=== PATIENT | male | born 1960 | race Caucasian/White ===

== ENCOUNTER 2018-08-09 12:14 | Emergency (ER) | payer BC ==
--- NOTE | 2018-08-09 13:04 | Emergency Department Record ---
History of Present Illness - General Chief complaint: Male Urogenital Problem Stated complaint: TROUBLE URINATING Source: Patient Mode of Arrival: Ambulatory Limitations: No limitations - History of Present Illness Initial comments: 57 yo male presents with difficulty urinating with frequent urination. The patient reports he had a Urolift procedure on Friday with Dr Bang. On he felt he was doing well. Starting Friday through today he has developed difficulty with urination and fever with a Tmax of 102 last night. Temperature this morning was 100.0. He has vague pressure over the bladder area. He reports some constipation. No nausea, vomiting or diarrhea. He is on T#3 and Cipro BID. MD Complaint: Other (Difficulty urinating) -: Days(s) (2) Improves with: None Worsens with: Urination Recent surgery Reports: Fever, Urinary retention - Related Data Home Medications Medication Instructions Recorded Confirmed Last Taken Acetaminop W/ Codeine 300/30Mg 1 tab PO ASDIR 08/09/18 08/09/18 08/09/18 [Tylenol with Codeine #3] Ciprofloxacin HCl [Cipro] 500 mg PO ASDIR 08/09/18 08/09/18 08/09/18 Oxycodone HCl/Acetaminophen 08/09/18 Unknown [Percocet 10mg/325mg] Previous Rx's Medication Instructions Recorded Acetaminop W/ Codeine 300/30Mg 1 tab PO Q6H #10 tab 08/09/18 [Tylenol #3] Docusate Sodium [Colace] 100 mg PO BID #14 cap 08/09/18 Sulfamethoxazole/Trimethoprim 1 each PO BID #14 tablet 08/09/18 [Bactrim Ds Tablet] Allergies Allergy/AdvReac Type Severity Reaction Status Date / Time No Known Drug Allergies Allergy Verified 08/09/18 12:53 Review of Systems Constitutional: Denies: Chills, Fever, Malaise, Weakness Eyes: Denies: Eye discharge ENT: Denies: Congestion, Throat pain Respiratory: Denies: Cough Cardiovascular: Denies: Chest pain, Syncope Endocrine: Denies: Fatigue Gastrointestinal: Reports: Abdominal pain. Denies: Diarrhea, Nausea, Vomiting Genitourinary: Reports: As per HPI, Frequency, Retention. Denies: Incontinence Musculoskeletal: Denies: Arthralgia, Back pain, Myalgia, Neck pain Skin: Denies: Bruising, Change in color, Rash Neurological: Denies: Confusion, Headache Psychiatric: Denies: Anxiety Hematological/Lymphatic: Denies: Easy bleeding, Easy bruising, Swollen glands Physical Exam - General General Appearance: Alert, Oriented x3, Cooperative, No acute distress Limitations: No limitations - Head Head exam: Atraumatic, Normal inspection - Eye Eye exam: Normal appearance. negative: Conjunctival injection - ENT ENT exam: Normal exam Ear exam: Normal external inspection Nasal Exam: Normal inspection Mouth exam: Normal external inspection - Neck Neck exam: Normal inspection - Respiratory Respiratory exam: Normal lung sounds bilaterally. negative: Respiratory distress - Cardiovascular Cardiovascular Exam: Regular rate, Normal rhythm, Normal heart sounds - GI/Abdominal GI/Abdominal exam: Soft. negative: Distended, Guarding, Rebound, Tenderness - Extremities Extremities exam: Normal inspection - Back Back exam: Denies: CVA tenderness (R), CVA tenderness (L) - Neurological Neurological exam: Alert, Oriented X3 - Psychiatric Psychiatric exam: Normal affect, Normal mood - Skin Skin exam: Dry, Intact, Normal color, Warm Course - Reevaluation(s) Reevaluation #1: 08/09/18 13:50 RN performed a bladder scan with multiple readings ranging 39-57 I did a bedside US that confirmed as well a small bladder consistent with the bladder scanner 08/09/18 14:28 CBC demonstrated a WBC of 15 The UA demonstrates N-, LE-, WBC 21-35, Few bacteria. 08/09/18 14:29 The BMP is normal. 08/09/18 15:[address] Choi contact center analyst for Dr Bang. We discussed the vitals, labs, clinical presentation, bladder scan, bedside US. Given the patient clinically looks well he recommended DC home, one dose of Rocephin, and change to Bactrim from Cipro. The patient can follow up in the office this week. The patient is not demonstrating any signs of current systemic infection with normal vitals. Clinically appears well. Medical Decision Making - Lab Data Result diagrams: 08/09/18 14:00 08/09/18 14:00 Disposition Disposition: Discharge Clinical Impression: Urinary tract infection Qualifiers: Urinary tract infection type: site unspecified Hematuria presence: without hematuria Qualified Code(s): N39.0 - Urinary tract infection, site not specified Disposition: Home, Self-Care Condition: (1) Good Instructions: Urinary Tract Infection in Men (ED) Additional Instructions: Be seen immediately if you have fever, shaking chills, pain or unable to urinate Stop the Cipro and change to Bactrim twice daily Stay hydrated Call Dr Bang's office tomorrow to schedule a recheck this week Prescriptions: Acetaminop W/ Codeine 300/30Mg [Tylenol #3] 1 tab PO Q6H #10 tab Docusate Sodium [Colace] 100 mg PO BID #14 cap Sulfamethoxazole/Trimethoprim [Bactrim Ds Tablet] 1 each PO BID #14 tablet Forms: Patient Portal Access Time of Disposition: 15:31 Quality - Quality Measures Quality Measures: N/A - Blood Pressure Screening Does Patient Have Any of the Following: No Blood Pressure Classification: Pre-Hypertensive BP Reading Systolic Measurement: 140 Diastolic Measurement: 80 Screening for High Blood Pressure: < Pre-Hypertensive BP, F/U Documented > [ [id number]] Pre-Hypertensive Follow-up Interventions: Referral to alternative/primary care provider.
[2018-08-09] MEDS ORDERED: 0.9 % SODIUM CHLORIDE 1000ML 1,000 ML IV ONE (13:25)
[2018-08-09 14:11] LABS: URINE BILIRUBIN NEGATIVE (NEGATIVE); URINE BLOOD MODERATE (NEGATIVE); URINE COLOR YELLOW; URINE GLUCOSE (UA) NEGATIVE (NEGATIVE); URINE KETONE NEGATIVE (NEGATIVE); URINE LEUKOCYTE ESTERASE NEGATIVE (NEGATIVE); URINE NITRITE NEGATIVE (NEGATIVE); URINE UROBILINOGEN 0.2 E.U./dL (0.20 - 1.00)
[2018-08-09 14:13] LABS: BASO % 0.3 % (0-6); EOS % 1.1 % (0-6); GRAN % 78.9 % (47-80); HEMATOCRIT 40.9 % (42.0-52.0); HEMOGLOBIN 13.9 gm/dl (14.0-18.0); MEAN CELL VOLUME 88.3 fl (81-97); MEAN PLATELET VOLUME 10.2 fl (7.4-10.4); MONO % 11.7 % (0-9); PLATELET COUNT 251 K/uL (130-400); RED BLOOD COUNT 4.63 M/uL (4.40-5.70); RED CELL DISTRIBUTION WIDTH 13.4 % (11.5-14.5); URINE APPEARANCE SL CLOUDY; WHITE BLOOD COUNT W/O DIFF 15.2 K/uL (4.2-12.2)
[2018-08-09 14:23] LABS: BLOOD UREA NITROGEN 13 mg/dL (6-20); EST GLOMERULAR FILTRATION RATE > 60 mL/min
[2018-08-09 14:25] LABS: GLUCOSE,RANDOM 120 mg/dL (74-109)
[2018-08-09 14:26] LABS: URINE BACTERIA FEW; URINE EPITHELIAL CELLS 0 - 2 (FEW); URINE MUCUS MODERATE; URINE WBC 21 - 35 (0-2/hpf)
[2018-08-09] MEDS ORDERED: CEFTRIAXONE SODIUM 2 GM in 0.9 % SODIUM CHLORIDE 100ML 100 ML IVPB ONE (15:04)
[2018-08-09] MEDS ORDERED: TMP/SMZ 160MG/800MG TAB PO ONE (15:04)
[2018-08-09] MEDS ORDERED: ACETAMINOPHEN W/ CODEINE 300MG/30MG TABLET PO ONE (15:16)
== END 2018-08-09 16:14 | disposition home or self-care (01) ==
LOC: ER 12:14
DX: N39.0 Urinary tract infection, site not specified (principal); R50.81 Fever presenting with conditions classified elsewhere
CPT/HCPCS: 99284 ×2; 96374; 85025; 80048; 81001; J3490; J7030